=== PATIENT | male | born 1955 | race African-American/Black ===

== ENCOUNTER → 2020-01-02 | Outpatient (CLI) | payer MEDICAID ==
[~2020-01-02] MED LIST: ALBU4TAB6 INH; FENTANYL CITRATE/PF 50MCG/ML 2ML VIAL ONE; FLUT1DIS2 IH; MIDAZOLAM HCL 2 MG/2 ML VIAL ONE; ONDANSETRON HCL 4MG/2ML INJ ONE; PROPOFOL 200MG/20ML VIAL IV ONE; TIOT18CA3 IH
== END | disposition home or self-care (01) ==
LOC: LAB 12:48
PROVIDERS: ATTEND Ophthalmology
DX: Z01.818 Encounter for other preprocedural examination (principal); Z11.59 Encounter for screening for other viral diseases
CPT/HCPCS: C9803; U0003

== ENCOUNTER 2020-01-06 06:40 | Day surgery (SDC) | payer MEDICAID ==
[~2020-01-06] VITALS: Ht 185.4 cm; Wt 108.0 kg
[2020-01-06] MEDS ORDERED: PHENYLEPHRINE HCL 10% OPHTH DROPS 5ML LEFTEYE NR (08:00)
[2020-01-06] MEDS ORDERED: CYCLOPENTOLATE HCL 1% OPHTH DROPS 2ML LEFTEYE NR (08:00)
[2020-01-06] MEDS ORDERED: TROPICAMIDE 1% OPHTH DROPS 15ML LEFTEYE NR (08:00)
[2020-01-06] MEDS ORDERED: LACTATED RINGERS 1,000 ML IV SCH (08:00)
[2020-01-06] MEDS ORDERED: BALANCED SALT IRRIG SOLN COMB1 500ML OP SCH (09:30)
[2020-01-06] MEDS ORDERED: ACETYLCHOLINE CHLORIDE INTRAOCULAR SOLUTION 1:100 ELECTROLYTE DILUENT IO ONE (10:11)
[2020-01-06] MEDS ORDERED: LIDOCAINE HCL 2%/EPINEPHRINE 1:100,000 20 ML VIAL INFIL ONE (10:11)
[2020-01-06] MEDS ORDERED: BUPIVACAINE HCL/PF 0.75% (7.5MG/ML) 10ML ONE (10:11)
[2020-01-06] MEDS ORDERED: PREDNISOLONE ACETATE 1% OPHTH DROPS 5ML ONE (10:11)
[2020-01-06] MEDS ORDERED: TETRACAINE 0.5% OPHTH DROPS 4ML ONE (10:11)
[2020-01-06] MEDS ORDERED: LIDOCAINE HCL/PF 2% 20 MG/ML 10ML VIAL ONE (10:11)
[2020-01-06] MEDS ORDERED: CIPROFLOXACIN 0.3% OPHTH SOLN 2.5ML ONE (10:11)
[2020-01-06] MEDS ORDERED: BALANCED SALT IRRIG SOLN 15ML ONE (10:11)
[2020-01-06] MEDS ORDERED: ALBU4TAB6 INH (11:13)
[2020-01-06] MEDS ORDERED: FLUT1DIS2 IH (11:13)
[2020-01-06] MEDS ORDERED: TIOT18CA3 IH (11:13)
[2020-01-06] MEDS ORDERED: HYALURONATE SODIUM 10 MG/ML 0.55ML SYRINGE IO ONE (12:02)
[2020-01-06] MEDS ORDERED: METOCLOPRAMIDE HCL 10MG/2ML VIAL IV NR (12:45)
== END 2020-01-06 15:30 | disposition home or self-care (01) ==
LOC: OR 06:40 → EDUNIT# 09:00 → OR 15:30
PROVIDERS: ATTEND Ophthalmology
DX: H25.89 Other age-related cataract (principal); H43.02 Vitreous prolapse, left eye; J44.9 Chronic obstructive pulmonary disease, unspecified; F17.210 Nicotine dependence, cigarettes, uncomplicated; Z79.899 Other long term (current) drug therapy; Z98.890 Other specified postprocedural states
CPT/HCPCS: 66984; 67005; J2250; J2405; J2704; J2765; J3010; J3490; V2630; V2632